=== PATIENT | female | born 1990 | race Caucasian/White ===

== ENCOUNTER 2016-12-26 21:17 | Emergency (ER) | payer OTHER ==
[2016-12-26 21:52] VITALS: BP 93/64; PULSE 77; RESP 20; TEMP 98.7; O2SAT 98
--- NOTE | 2016-12-26 22:05 | C.PDOC ---
History Of Present Illness 26 year old female presents to ED with complaints of dysuria since yesterday which worsened today with frequency and urgency. She noticed blood tinged urine this evening prompting ED visit. She denies fever, flank pain, vomiting, pelvic pain. She admits to history of UTI in the past. Time Seen by Provider: 12/26/16 21:57 Chief Complaint (Nursing): Female Genitourinary History Per: Patient, Family () History/Exam Limitations: language barrier (Bengali) Onset/Duration Of Symptoms: Days (2) Current Symptoms Are (Timing): Still Present Quality Of Discomfort: Burning, "Pain" Abnormal Vaginal Bleeding: No Last Menstral Period: 5 year ago, she has IUD Past Medical History Reviewed: Historical Data, Nursing Documentation, Vital Signs Vital Signs: Last Vital Signs Temp 98.7 F 12/26/16 21:49 Pulse 77 12/26/16 21:49 Resp 20 12/26/16 21:49 BP 93/64 L 12/26/16 21:49 Pulse Ox 98 12/26/16 22:15 - Medical History PMH: Anemia Surgical History: Family History: States: Unknown Family Hx - Social History Hx Alcohol Use: No Hx Substance Use: No - Immunization History Hx Tetanus Toxoid Vaccination: No Hx Influenza Vaccination: No Hx Pneumococcal Vaccination: No Review Of Systems Constitutional: Negative for: Fever Cardiovascular: Negative for: Palpitations Respiratory: Negative for: Cough Gastrointestinal: Negative for: Nausea, Abdominal Pain, Diarrhea Genitourinary: Positive for: Dysuria, Frequency, Hematuria. Negative for: Vaginal Bleeding, Pelvic Pain Musculoskeletal: Negative for: Back Pain Neurological: Negative for: Headache Physical Exam - Physical Exam Appears: Non-toxic, No Acute Distress Skin: Warm, Dry Head: Atraumatic, Normacephalic Eye(s): bilateral: Normal Inspection, EOMI Nose: Normal Oral Mucosa: Moist Neck: Normal ROM Chest: Symmetrical Cardiovascular: Rhythm Regular, No Murmur Respiratory: Normal Breath Sounds, No Wheezing Gastrointestinal/Abdominal: Bowel Sounds (active), Soft, Tenderness (mild suprapubic), No Mass, No Distention, No Guarding Back: Normal Inspection, No CVA Tenderness, No Vertebral Tenderness, No Paraspinal Tenderness Extremity: Bilateral: Atraumatic, Normal Color And Temperature, Normal ROM Neurological/Psych: Oriented x3, Normal Speech Gait: Steady ED Course And Treatment O2 Sat by Pulse Oximetry: 98 (room air) Pulse Ox Interpretation: Normal Medical Decision Making Medical Decision Making: Impression: Urinary complaints, likely UTI Plan: * UA * UCG * Urine C/S * Pyridium Progress: UA shows negative test and WBC >200, LE 3+ and Blood. Will treat for UTI with Cipro Patient remained afebrile with stable vital signs during ER evaluation. She reports mild improvement of symptoms. Discussed results with patient. On re-examination, patient is resting comfortably in no acute distress. Patient reports improvement of symptoms. Patient feels comfortable going home and will be discharged with Rx for Cipro BID for 5 days. Patient given follow up instructions. Instructed to return to ER if symptoms worsen or new symptoms arise. Disposition Counseled Patient/Family Regarding: Studies Performed, Diagnosis, Need For Followup, Rx Given - Disposition Referrals: Elizabeth Albert MD [Staff Provider] - Disposition Time: 22:29 Condition: STABLE Additional Instructions: Your urine analysis shows Urinary tract infection. It is important that you drink plenty of fluids and take antibiotic twice daily for 5 days. Take pain medication as needed. Follow up with your doctor upon completion of medication to ensure the infection has cleared. Return to Emergency Room for any worsening symptoms or concern. Prescriptions: Ciprofloxacin [Cipro] 1 tab PO BID #10 tab Phenazopyridine [Pyridium] 100 mg PO Q8 #9 tab Instructions: Urinary Tract Infection in Women (DC) Forms: [facility] (Korean) - POA Present On Arrival: None - Clinical Impression Clinical Impression: UTI (urinary tract infection) - PA / MANAGER CARGO / Resident Statement / has reviewed & agrees with the documentation as recorded.
[2016-12-26 22:24] LABS: RBC URINE 142 /hpf (0-3); URINE BACTERIA FEW (<OCC); URINE BILIRUBIN NEGATIVE (NEGATIVE); URINE BLOOD 3+ (NEGATIVE); URINE COLOR Yellow (YELLOW); URINE GLUCOSE (UA) NORMAL (Normal); URINE KETONE NEGATIVE (NEGATIVE); URINE LEUKOCYTE ESTERASE 3+ Leu/uL (Negative); URINE PROTEIN 1+ mg/dL (NEGATIVE); URINE UROBILINOGEN NORMAL mg/dL (0.2-1.0); WBC URINE 297 /hpf (0-5)
== END 2016-12-26 22:34 | disposition home or self-care (01) ==
LOC: C.ER 21:17
DX: N39.0 Urinary tract infection, site not specified (principal); B96.89 Other specified bacterial agents as the cause of diseases classified elsewhere

== ENCOUNTER 2017-04-24 18:39 | Emergency (ER) | payer OTHER ==
[2017-04-24 18:50] VITALS: O2SAT 99
--- NOTE | 2017-04-24 19:42 | C.PDOC ---
History Of Present Illness Patient who is 5-6 weeks presents to the ER with a complaint of a headache and diffuse generalized weakness. Denies vaginal bleeding, nausea, or vomiting. Time Seen by Provider: 04/24/17 19:42 Chief Complaint (Nursing): Headache History Per: Patient History/Exam Limitations: no limitations Onset/Duration Of Symptoms: Days Current Symptoms Are (Timing): Still Present Severity: Mild Pain Scale Rating Of: 4 Preceeding Symptoms: None Associated Symptoms: denies: Photophobia, Blurred Vision, Nausea, Vomiting, Extremity Weakness Recent travel outside of the [place]: No Past Medical History Reviewed: Historical Data, Nursing Documentation, Vital Signs Vital Signs: Last Vital Signs Temp 98 F 04/24/17 18:49 Pulse 71 04/24/17 18:49 Resp 20 04/24/17 18:49 BP 132/67 04/24/17 18:49 Pulse Ox 99 04/24/17 20:19 - Medical History PMH: Anemia Surgical History: Family History: States: Unknown Family Hx - Social History Hx Alcohol Use: No Hx Substance Use: No - Immunization History Hx Tetanus Toxoid Vaccination: No Hx Influenza Vaccination: No Hx Pneumococcal Vaccination: No Review Of Systems Constitutional: Positive for: Weakness. Negative for: Fever, Chills Gastrointestinal: Negative for: Nausea, Vomiting Genitourinary: Negative for: Vaginal Bleeding Neurological: Positive for: Headache Physical Exam - Physical Exam Appears: Non-toxic, No Acute Distress Skin: Warm, Dry Head: Normacephalic Oral Mucosa: Moist Chest: Symmetrical, No Tenderness Cardiovascular: Rhythm Regular Respiratory: No Rales, No Rhonchi, No Wheezing Gastrointestinal/Abdominal: Soft, No Tenderness Neurological/Psych: Oriented x3 ED Course And Treatment - Laboratory Results Result Diagrams: 04/24/17 20:15 04/24/17 20:15 O2 Sat by Pulse Oximetry: 99 (room air) Pulse Ox Interpretation: Normal Progress Note: Blood work and urinalysis ordered. IV fluids administered. Reevaluation Time: 23:00 Reassessment Condition: Improved Disposition Counseled Patient/Family Regarding: Studies Performed, Diagnosis, Need For Followup - Disposition Referrals: [facility] [Outside] [facility] [Outside] Disposition Time: 19:42 Condition: FAIR Prescriptions: Pnv No.121/Iron/Folic Acid [ Multivitamin Tablet] 1 each PO DAILY #30 tablet Polyethylene Glycol 3350 [Miralax] 17 gm PO DAILY #270 ml Instructions: Constipation (DC), (ED) Forms: [facility] (Wolof) - Clinical Impression Clinical Impression: Constipation, Abdominal pain affecting - Scribe Statement The provider has reviewed the documentation as recorded by the Scribe Roland Dockery All medical record entries made by the Scribe were at my direction and personally dictated by me. I have reviewed the chart and agree that the record accurately reflects my personal performance of the history, physical exam, medical decision making, and the department course for this patient. I have also personally directed, reviewed, and agree with the discharge instructions and disposition.
[2017-04-24] MEDS ORDERED: Lactated Ringer's 1,000 ML IV ONE (19:48)
[2017-04-24 20:06] LABS: RBC URINE 1 /hpf (0-3); URINE BACTERIA RARE (<OCC); URINE BILIRUBIN NEGATIVE (NEGATIVE); URINE BLOOD NEGATIVE (NEGATIVE); URINE COLOR Yellow (YELLOW); URINE GLUCOSE (UA) NORMAL (Normal); URINE KETONE NEGATIVE (NEGATIVE); URINE LEUKOCYTE ESTERASE NEG Leu/uL (Negative); URINE PROTEIN NEGATIVE (NEGATIVE); URINE UROBILINOGEN NORMAL mg/dL (0.2-1.0); WBC URINE 1 /hpf (0-5)
[2017-04-24 20:19] LABS: BASO # 0.1 K/uL (0.0-0.2); BASO % 0.6 % (0.0-2.0); EOS # 0.1 K/uL (0.0-0.7); HEMATOCRIT 35.6 % (34.0-47.0); LYMPH # 2.9 K/uL (1.0-4.3); LYMPH % 27.8 % (20.0-40.0); MEAN CELL VOLUME 86.9 fL (81.0-99.0); MEAN CORPUSCULAR HGB CONC 33.3 g/dL (33.0-37.0); MEAN PLATELET VOLUME 8.5 fL (7.2-11.7); MONO # 0.7 K/uL (0.0-0.8); MONO % 6.3 % (0.0-10.0); NRBC % 0.1 % (0.0-2.0); RED CELL DISTRIBUTION WIDTH 13.4 % (11.5-14.5); WHITE BLOOD COUNT 10.4 K/uL (4.8-10.8)
[2017-04-24 20:30] LABS: ALKALINE PHOSPHATASE 38 U/L (38-126); ALT/SGPT 48 U/L (9-52); AST/SGOT 18 U/L (14-36); BILIRUBIN,TOTAL 0.5 mg/dL (0.2-1.3); BLOOD UREA NITROGEN 10 mg/dL (7-17); CALCIUM 8.8 mg/dl (8.6-10.4); CARBON DIOXIDE 28 mmol/L (22-30); CHLORIDE 103 mmol/L (98-107); GFR AFRICAN-AMERICAN > 60; GLUCOSE,RANDOM 90 mg/dL (65-105); POTASSIUM 4.6 mmol/L (3.6-5.2); SODIUM 137 mmol/L (132-148); TOTAL PROTEIN 8.5 g/dL (6.3-8.3)
--- NOTE | 2017-04-24 22:40 | US ---
EXAM: US First Trimester, Transabdominal CLINICAL HISTORY: 27 years old, female; Pain; complicated by abdominal or pelvic pain; Lower; First trimester; Gestational age or lmp: 10-30-17; ; Additional info: , abdominal pain TECHNIQUE: Real-time transabdominal obstetrical ultrasound of the maternal pelvis and a first trimester with image documentation. COMPARISON: No relevant prior studies available. FINDINGS: Only transabdominal imaging was performed as patient refused transvaginal study. The uterus measures approximately 12 x 5 x 5.5 cm. The cervix measures 3.2 cm. There is an intrauterine gestational sac containing a yolk sac and pole. Measurements correspond to a gestational age of 6 weeks 3 days. A heart rate of 11-115 beats per minute was obtained. The maternal ovaries appear normal.Color flow and doppler vascular waveforms were demonstrated to both ovaries. IMPRESSION: Single live IUP. EXAM: US First Trimester, Transabdominal EXAM DATE/TIME: 04/24/2017 8:43 PM CLINICAL HISTORY: 27 years old, female; Pain; complicated by abdominal or pelvic pain; Lower; First trimester; Gestational age or lmp: 10-30-17; ; Additional info: , abdominal pain TECHNIQUE: Real-time transabdominal obstetrical ultrasound of the maternal pelvis and a first trimester with image documentation. COMPARISON: No relevant prior studies available. FINDINGS: Only transabdominal imaging was performed as patient refused transvaginal study. The uterus measures approximately 12 x 5 x 5.5 cm. The cervix measures 3.2 cm. There is an intrauterine gestational sac containing a yolk sac and pole. Measurements correspond to a gestational age of 6 weeks 3 days. A heart rate of 11-115 beats per minute was obtained. The maternal ovaries appear normal.Color flow and doppler vascular waveforms were demonstrated to both ovaries. IMPRESSION: Single live IUP.
[2017-04-24 23:07] VITALS: BP 126/69; PULSE 76; RESP 18; TEMP 98.2
== END 2017-04-24 23:08 | disposition home or self-care (01) ==
LOC: C.ER 18:39
DX: O26.891 Other specified pregnancy related conditions, first trimester (principal); Z3A.01 Less than 8 weeks gestation of pregnancy; K59.00 Constipation, unspecified; R10.9 Unspecified abdominal pain
CPT/HCPCS: 76801; 80053; 81001; 84702; 85025; 85610; 85730; 86850; 86900; 96360; 99284; J7120

== ENCOUNTER 2017-07-07 11:47 | Emergency (ER) | payer OTHER ==
[2017-07-07 12:57] VITALS: RESP 18
[2017-07-07 14:15] LABS: BLOOD UREA NITROGEN 8 mg/dL (7-17); CALCIUM 9.3 mg/dl (8.6-10.4); GFR AFRICAN-AMERICAN > 60; GFR NON-AFRICAN AMERICAN > 60
[2017-07-07 14:52] LABS: BASO % 0.4 % (0.0-2.0); EOS # 0.1 K/uL (0.0-0.7); EOS % 0.8 % (0.0-4.0); HEMOGLOBIN 11.5 g/dL (11.0-16.0); LYMPH # 2.3 K/uL (1.0-4.3); LYMPH % 24.1 % (20.0-40.0); MEAN CELL VOLUME 90.8 fL (81.0-99.0); MEAN CORPUSCULAR HEMOGLOBIN 31.1 pg (27.0-31.0); MEAN CORPUSCULAR HGB CONC 34.2 g/dL (33.0-37.0); MEAN PLATELET VOLUME 8.9 fL (7.2-11.7); MONO # 0.5 K/uL (0.0-0.8); MONO % 5.5 % (0.0-10.0); NEUT # 6.6 K/uL (1.8-7.0); NEUT % 69.2 % (50.0-75.0); RBC 3.69 Mil/uL (3.80-5.20); RED CELL DISTRIBUTION WIDTH 14.1 % (11.5-14.5); WHITE BLOOD COUNT 9.5 K/uL (4.8-10.8)
--- NOTE | 2017-07-07 14:59 | US ---
OB , limited Indication: Pain Comparison: First trimester ultrasound performed 04/24/17 Technique: Real-time ultrasound was performed through the pelvis. Findings: There is a single living fetus in breech presentation. Posterior placenta. The placenta is not previa. There are no adnexal masses or cysts evident. Cervix length measures approximately 4.9 cm. The study was performed for the emergent evaluation of pain, and the whole anatomic survey of the fetus was not performed. This should be performed on an outpatient elective basis as clinically warranted. Please note limited four-chamber heart view. Measurements and calculations: Fetus has a composite sonographic age of 17 weeks 1 day. This calculation is based on the biparietal diameter, head circumference, abdominal circumference, and femur length. Estimated heart rate 139.3 beats per min. Impression: Single living fetus in breech presentation with a composite sonographic age of 17 weeks 1 day. Estimated heart rate 139.3 beats per min. The study was performed for the emergent evaluation of pain, and the whole anatomic survey of the fetus was not performed. This should be performed on an outpatient elective basis as clinically warranted. Please note limited four-chamber heart view.
--- NOTE | 2017-07-07 15:08 | C.PDOC ---
History Of Present Illness 27 yo female , spontaneous -1, come in for evaluation of gradual onset of diffuse lower abdominal pain for past 4 days. Pt reports, pain is intermittent, non-radiating. Otherwise, pt denies fever, chills, recent illness , headache, CP, SOB, V/D, UTI sx, hematuria, vaginal discharge or bleeding. Ambulate to ED for evaluation, not in any apparent distress. Time Seen by Provider: 07/07/17 13:37 Chief Complaint (Nursing): Abdominal Pain History Per: Patient Past Medical History Reviewed: Historical Data, Nursing Documentation Vital Signs: Last Vital Signs Temp 98.6 F 07/07/17 15:35 Pulse 76 07/07/17 15:35 Resp 18 07/07/17 15:35 BP 100/63 07/07/17 15:35 Pulse Ox 100 07/07/17 15:37 - Medical History PMH: Anemia Surgical History: Family History: States: Unknown Family Hx - Social History Hx Alcohol Use: No Hx Substance Use: No - Immunization History Hx Tetanus Toxoid Vaccination: No Hx Influenza Vaccination: No Hx Pneumococcal Vaccination: No Review Of Systems Except As Marked, All Systems Reviewed And Found Negative. Constitutional: Negative for: Fever, Chills ENT: Negative for: Throat Pain Cardiovascular: Negative for: Chest Pain, Palpitations Respiratory: Negative for: Cough, Shortness of Breath, Wheezing Gastrointestinal: Positive for: Abdominal Pain. Negative for: Nausea, Vomiting , Diarrhea Genitourinary: Negative for: Dysuria, Frequency, Hematuria, Vaginal Discharge, Vaginal Bleeding Musculoskeletal: Negative for: Neck Pain, Back Pain Skin: Negative for: Rash Neurological: Negative for: Weakness, Numbness, Altered Mental Status, Dizziness Physical Exam - Physical Exam Appears: Well, Non-toxic, No Acute Distress Skin: Normal Color, Warm, Dry, No Rash Head: Atraumatic, Normacephalic Eye(s): bilateral: PERRL Nose: No Flaring, No Discharge Oral Mucosa: Moist, No Drooling Throat: No Drooling Neck: Trachea Midline, Supple Cardiovascular: Rhythm Regular, No Murmur, No JVD Respiratory: No Decreased Breath Sounds, No Accessory Muscle Use, No Stridor, No Wheezing Gastrointestinal/Abdominal: Soft, Tenderness (DIFFUSE LOWER), Other (Gravid) Back: No CVA Tenderness Extremity: Normal ROM, No Deformity, No Swelling Neurological/Psych: Oriented x3, Normal Speech ED Course And Treatment - Laboratory Results Result Diagrams: 07/07/17 14:01 07/07/17 14:01 Lab Interpretation: Normal Urine POC: Positive O2 Sat by Pulse Oximetry: 100 Pulse Ox Interpretation: Normal - CT Scan/US OB US Other Rad Studies (CT/US): Radiology Report Reviewed CT/US Interpretation: OB , limited. Indication: Pain. Comparison: First trimester ultrasound performed 04/24/17. Technique: Real-time ultrasound was performed through the pelvis. Findings: There is a single living fetus in breech presentation. Posterior placenta. The placenta is not previa. There are no adnexal masses or cysts evident. Cervix length measures approximately 4.9 cm. The study was performed for the emergent evaluation of pain, and the whole anatomic survey of the fetus was not performed. This should be performed on an outpatient elective basis as clinically warranted. Please note limited four-chamber heart view. Measurements and calculations: Fetus has a composite sonographic age of 17 weeks 1 day. This calculation is based on the biparietal diameter, head circumference, abdominal circumference, and femur length. Estimated heart rate 139.3 beats per min. Impression: Single living fetus in breech presentation with a composite sonographic age of 17 weeks 1 day. Estimated heart rate 139.3 beats per min. The study was performed for the emergent evaluation of pain, and the whole anatomic survey of the fetus was not performed. This should be performed on an outpatient elective basis as clinically warranted. Please note limited four-chamber heart view. Progress Note: On re-eval, pt appears comforatble. Pt afebrile, hemodynamicaly stable. Pt request discahrges now " I have to go, my kid is waiting for me". AFter blood work and US results review, OB consult offered to pateint with on- call OB. Pt refused at this time consult. Pt request, discharge with outpt f/u with her OB Soni Bhandari. Pt advised on risks of leaving AMA, agrees. Copious of blood work and imaging given to pt. Pt advised return to Ed at any time to complete evaluation, or F/u with private OB in 1 day for re-eval. Pt understand and agrees with discharges. Disposition - Disposition Disposition: AGAINST MEDICAL ADVICE Disposition Time: 15:36 Condition: STABLE Additional Instructions: Follow up with OB in 1 day for re-evaluation. return to ED to complete evaluation or any worsening or new changes. Instructions: Threatened Miscarriage (DC) Forms: [facility] (Tristanian) - Clinical Impression Clinical Impression: Threatened
[2017-07-07 15:17] LABS: HCG,QUALITATIVE URINE POSITIVE (NEGATIVE)
[2017-07-07 15:20] LABS: SQUAMOUS EPITHIAL 5 /hpf (0-5); URINE BACTERIA RARE (<OCC); URINE BILIRUBIN NEGATIVE (NEGATIVE); URINE BLOOD 1+ (NEGATIVE); URINE CLARITY Hazy (Clear); URINE COLOR Yellow (YELLOW); URINE GLUCOSE (UA) NORMAL (Normal); URINE LEUKOCYTE ESTERASE NEG Leu/uL (Negative); URINE NITRATE NEGATIVE (NEGATIVE); URINE PROTEIN NEGATIVE (NEGATIVE); URINE UROBILINOGEN NORMAL mg/dL (0.2-1.0)
[2017-07-07 15:36] VITALS: BP 100/63; PULSE 76; TEMP 98.6
[2017-07-07 15:38] VITALS: O2SAT 100
== END 2017-07-07 13:37 | disposition left against medical advice (07) ==
LOC: C.ER 11:47
DX: O20.0 Threatened abortion (principal); Z3A.17 17 weeks gestation of pregnancy